=== PATIENT | female | born 1960 | race Caucasian/White ===

== ENCOUNTER 2019-12-14 14:57 | Emergency (ER) | payer OTHER, SELFPAY ==
--- NOTE | ~2019-12-14 | XR_ITS ---
EXAMINATION: XR chest 2V 12/14/2019 17:17 INDICATION: Dizziness. PROCEDURE: 2 view chest COMPARISON: Comparison to multiple prior studies sequentially, with oldest reviewed study dated 08/17. FINDINGS: The lungs are clear. The cardiomediastinal silhouette is within normal limits. There are no pleural effusions. There is no pneumothorax suspected. IMPRESSION: 1: NO ACUTE CARDIOPULMONARY DISEASE. Reviewed, dictated and finalized at location A.
[2019-12-14 15:53] VITALS: BP 152/93; PULSE 68; RESP 18; TEMP 36.5; O2SAT 99
--- NOTE | 2019-12-14 15:57 | ECG_ITS ---
Measurements Intervals [place] Rate: 59 P: -2 CO: 222 QRS: 8 QRSD: 85 T: 25 QT: 402 QTc: 400 Interpretive Statements SINUS BRADYCARDIA WITH FIRST DEGREE AV BLOCK INCOMPLETE RIGHT BUNDLE BRANCH BLOCK LOW QRS VOLTAGE IN PRECORDIAL LEADS BASELINE WANDER- V2-V6 ABNORMAL ECG Electronically Signed On 12-14-2019 18:27:08 CDT by Wilson Mantilla D.O.
[2019-12-14 16:12] LABS: Basophils Absolute Auto 0.1 K/mm3 (0.0-0.1); Basophils Percent Auto 0.8 % (0.2-1.2); Eosinophils Absolute Auto 0.4 K/mm3 (0-0.3); Eosinophils Percent Auto 3.8 % (0-4.4); Hematocrit 45.2 % (37.0-47.0); Hemoglobin 15.3 g/dL (12.0-15.0); Immature Granulocyte Absolute 0.02 K/mm3 (0.00-0.031); Immature Granulocyte Percent A 0.2 % (0-0.5); Lymphocytes Absolute Auto 2.58 K/mm3 (0.9-3.2); Lymphocytes Percent Auto 27.7 % (18.3-44.2); Mean Corpuscular HGB Conc 33.8 g/dl (32-36); Mean Corpuscular Hemoglobin 29.4 pg (26-34); Mean Corpuscular Volume 86.8 fl (80-100); Mean Platelet Volume 8.8 fl (7.4-10.4); Monocytes Absolute Auto 0.5 K/mm3 (0.1-0.6); Monocytes Percent Auto 4.9 % (2.6-8.5); Neutrophils Absolute Auto 5.8 K/mm3 (1.3-6.7); Neutrophils Percent Auto 62.6 % (45.5-73.1); Platelet Count Result 345 k/mm3 (150-375); Red Blood Count 5.21 M/mm3 (4.2-5.4); Red Cell Distribution Width 12.5 % (11.5-14.5); White Blood Count 9.3 K/mm3 (4.5-10.0)
[2019-12-14 16:21] LABS: Add Urine Microscopic? YES; Appearance Urine Clear (Clear); Bilirubin Urine Negative (Negative); Blood Urine Negative (Negative); Color Urine Yellow (Yellow); Glucose Urine UA Negative (Negative); Ketones Urine Negative (Negative); Leukocyte Esterase Ur 1+ LEU/UL (Negative); Nitrate Urine Negative (Negative); Protein Urine Negative (Negative); RBC Urine 0-2 /hpf (0-2); Squamous Epithelial Cell Urine Occasional /hpf (Few); Urobilinogen Urine Negative mg/dL (<2.0); WBC Urine 0-3 /hpf
[2019-12-14 16:25] LABS: Alanine Aminotransferase 32 U/L (4-35); Albumin Level 4.8 g/dL (3.5-5.1); Alkaline Phosphatase 115 U/L (38-126); Aspartate Amino Transferase 28 U/L (14-36); Bilirubin,Total 0.3 mg/dL (0.2-1.3); Blood Urea Nitrogen 17 mg/dL (7-17); Calcium 9.2 mg/dL (8.4-10.2); Carbon Dioxide 24 mmol/L (22-30); Chloride 104 mmol/L (98-107); Estimated CRCL calculation 82 ml/min; Estimated Glomerular Filt Rate > 60; Glucose 112 mg/dL (65-105); Potassium 3.8 mmol/L (3.4-5.0); Sodium 141 mmol/L (137-145)
[2019-12-14 17:32] VITALS: BP 157/99; PULSE 67; RESP 18; O2SAT 97
--- NOTE | 2019-12-14 17:59 | ED.GENADULT ---
HPI - General Adult General Chief complaint: Recheck/Abnormal Lab/Rx Stated complaint: High Blood Pressure Time Seen by Provider: 12/14/19 17:07 Source: patient and family Mode of arrival: ambulatory Limitations: no limitations History of Present Illness HPI narrative: Patient is a 59-year-old female who presents to emergency department for evaluation of having not felt well Monday had a brief syncopal episode at work has been off work since notes that she has had some mild aching pain to the right ear that radiates into the neck. Patient denies any injuries related to the syncope patient noticed syncope in the past but nothing in the recent past. . Patient has not been seen for this complaint. Patient went to urgent care and was referred to the emergency department for further evaluation Related Data Home Medications Medication Instructions Recorded Confirmed simvastatin 10 mg tablet 10 mg PO DAILY 06/07/19 zolpidem 12.5 mg tablet,extended 12.5 mg PO ONCE 06/07/19 release,multiphase Allergies Allergy/AdvReac Type Severity Reaction Status Date / Time Iodinated Contrast Media Allergy Unknown Hives Verified 12/14/19 17:38 iodine Allergy Unknown Unknown Verified 12/14/19 17:38 Contrast Media Allergy Intermediate HIVES, Uncoded 12/14/19 17:38 ITCHING Review of Systems Review of Systems: All systems reviewed & are unremarkable except as noted in HPI and below PMFSH Past Medical History Medical History Hepatic steatosis High cholesterol History of blood transfusion History of kidney stones Hx of mitral valve prolapse Hypothyroid Surgical History Surgical History Hx of hysterectomy Hx of rotator cuff surgery Hx of total knee replacement Family History Family History Mother Family history of mental disorder Hypertension Family history of coronary artery disease Father Family history of coronary artery disease Other Family history of cardiovascular disease Family history of kidney disease Social History Social History Smoking packs per day: 1 Smoking cigarettes per day: 20.0 Smoking status: Former smoker Tobacco type: cigarettes Smoking end date: 06/05/98 Alcohol intake: current Substance use: never Exam Narrative: Exam Narrative: GENERAL: Well-appearing, well-nourished, and in no acute distress. HEAD: Normocephalic, atraumatic. EYES: PERRLA and EOMI. ENT: Nares clear, no rhinorrhea or epistaxis. Mucous membranes moist. Oropharynx without tonsillar hypertrophy exudate or other lesions. NECK: Supple. No adenopathy or masses. CHEST: Clear to auscultation. No respiratory distress. No wheezes rales or rhonchi HEART: Regular rate and rhythm. No murmur heard. Normal peripheral pulses. ABDOMEN: Soft, nontender, nondistended EXTREMITIES: Normal range of motion. No edema. SKIN: Warm, dry, no rash. NEURO: No focal deficits. Alert and oriented x3. Cranial nerves II through XII grossly intact. Normal speech and gait PSYCH: Normal mood and affect. Course Course Emergency Course: Patient in the room in no distress aware of case findings treatment plan and diagnosis agreeing to follow-up with primary care no high risk changes in the blood work or imaging will also be referred to ENT for her ear pain Vital Signs Vital signs: Vital Signs Temperature 97.7 F 12/14/19 15:53 Pulse Rate 68 12/14/19 15:53 Respiratory Rate 18 12/14/19 15:53 Blood Pressure 152/93 H 12/14/19 15:53 Pulse Oximetry 99 12/14/19 15:53 Temperature 97.7 F 12/14/19 15:53 Pulse Rate 67 12/14/19 17:32 Respiratory Rate 18 12/14/19 17:32 Blood Pressure 157/99 H 12/14/19 17:32 Pulse Oximetry 97 12/14/19 17:32 Medical Decision Making CHRISTOFER Liu
== END 2019-12-14 18:27 | disposition home or self-care (01) ==
PROVIDERS: Emergency Provider Emergency Medicine; PCP Emergency Medicine
DX: R55 Syncope and collapse (principal); H92.01 Otalgia, right ear; E78.00 Pure hypercholesterolemia, unspecified; Z87.442 Personal history of urinary calculi; E03.9 Hypothyroidism, unspecified; I34.1 Nonrheumatic mitral (valve) prolapse; Z96.659 Presence of unspecified artificial knee joint; Z87.891 Personal history of nicotine dependence
CPT/HCPCS: 36415; 71046; 80053; 81001; 85025; 93005; 99283

== ENCOUNTER 2020-02-15 09:19 | Outpatient (CLI) | payer OTHER, SELFPAY ==
--- NOTE | ~2020-02-15 | CT_ITS ---
EXAMINATION: CT chest wo con DATE: 02/15/2020 09:42 INDICATION: Follow-up lung nodule TECHNIQUE: Computed tomography (CT) of the chest was performed without intravenous contrast. The dose -length product was 440.78 mGy-cm. Automated exposure control and iterative reconstruction technique were employed. COMPARISON: CT dated 04/15/2019 FINDINGS: No significant pleural or pericardial effusion. There are calcified mediastinal lymph nodes , consistent with chronic granulomatous disease. There is a stable 10 x 7 x 5 mm left lower lobe nodu le, unchanged. No new pulmonary nodules or masses. No focal airspace consolidation. No pathologically enlarged lymph nodes. Mild thoracic spondylosis. IMPRESSION: 1. Stable 10 x 7 x 5 mm left lower lobe nodule. Follow-up low dose CT chest in 12 months recommended. Reviewed, dictated and finalized at location A.
== END 2020-02-15 09:20 | disposition home or self-care (01) ==
PROVIDERS: PCP Emergency Medicine; Visit Provider Emergency Medicine
DX: R91.1 Solitary pulmonary nodule (principal)
CPT/HCPCS: 71250

== ENCOUNTER 2020-03-02 07:36 | Outpatient (CLI) | payer OTHER, SELFPAY ==
--- NOTE | ~2020-03-02 | MM_ITS ---
EXAMINATION: MM screening [facility] BI w monty HISTORY: Screening mammogram TECHNIQUE: Craniocaudal and mediolateral oblique 3-D tomosynthesis images were obtained and synthetic 2-D images were generated. CAD analysis was submitted and interpreted. COMPARISON: 02/21/2019, 03/14/2018, 02/19/2018, 02/07/2017 BREAST PARENCHYMAL COMPOSITION: There are scattered areas of fibroglandular density. FINDINGS: There is no evidence of suspicious mass, calcification, or architectural distortion to sugg est malignancy in either breast. There has been no suspicious interval change. IMPRESSION: 1. No mammographic evidence of malignancy. 2. Recommend routine screening mammography in one year. BI-RADS Category 1: Negative Reviewed, dictated and finalized at location A.
== END 2020-03-02 07:37 | disposition home or self-care (01) ==
LOC: ANHIMG 07:38
PROVIDERS: PCP Emergency Medicine; Visit Provider Emergency Medicine
DX: Z12.31 Encounter for screening mammogram for malignant neoplasm of breast (principal)
CPT/HCPCS: 77063; 77067

== ENCOUNTER 2020-03-25 06:48 | Outpatient (NON) | payer OTHER, SELFPAY ==
[2020-03-25 19:05] LABS: SARS-CoV-2 RNA PCR Negative
== END 2020-03-25 06:49 ==
LOC: ANHCOVIDDT 06:49
PROVIDERS: PCP Emergency Medicine; Visit Provider Emergency Medicine
DX: Z20.828 Contact with and (suspected) exposure to other viral communicable diseases (principal); B34.9 Viral infection, unspecified
CPT/HCPCS: 87635; C9803; U0003

== ENCOUNTER 2020-09-29 16:21 | Outpatient (CLI) | payer OTHER, SELFPAY ==
--- NOTE | ~2020-09-29 | NM_ITS ---
EXAMINATION: NM pulmonary perfusion EXAM DATE: 09/29/2020 17:20 INDICATION: Chest pain. TECHNIQUE: A perfusion lung scan was performed. The patient was injected with 4.5 mCi technetium 99m MAA and imaged. Modified PIOPED 2 criteria used for interpretation of perfusion without ventilation study (recent chest x-ray instead for comparison). There is no prior study for comparison. FINDINGS: There is homogeneous perfusion throughout the lungs, no evidence of defect. IMPRESSION: Normal perfusion scan. Reviewed, dictated and finalized at location A. IMPRESSION: Normal perfusion scan.
--- NOTE | ~2020-09-29 | US_ITS ---
EXAMINATION: US venous doppler LE RT EXAM DATE: 09/29/2020 16:54 INDICATION: Right leg pain. TECHNIQUE: Multiple grayscale, color flow and Doppler images of the right lower extremity deep venous system were obtained and reviewed. There is no prior study for comparison. FINDINGS: The right common femoral, femoral and profunda veins demonstrate normal color flow, respira tory variation, augmentation and compressibility. Compressibility, color flow confirmed within the r ight popliteal, posterior tibial, peroneal, and greater saphenous veins. IMPRESSION: 1. No right lower extremity deep venous thrombosis. Reviewed, dictated and finalized at location A.
--- NOTE | ~2020-09-29 | XR_ITS ---
EXAMINATION: XR chest 2V EXAM DATE: 09/29/2020 17:38 INDICATION: Chest pain. TECHNIQUE: Frontal and lateral projections of the chest obtained and reviewed. Comparison is made to prior examination from 12/14/2019. FINDINGS: The lungs are clear. There are no pleural effusions. The cardiomediastinal silhouette is within normal limits. There is no pneumothorax suspected. The bones and soft tissues are unremarkab le. IMPRESSION: Unremarkable chest x-ray exam. Reviewed, dictated and finalized at location A.
== END 2020-09-29 16:22 | disposition home or self-care (01) ==
PROVIDERS: PCP Emergency Medicine; Visit Provider Emergency Medicine
DX: M79.661 Pain in right lower leg (principal); R07.9 Chest pain, unspecified
CPT/HCPCS: 71046; 78580; 93971; A9540

== ENCOUNTER 2021-01-14 10:23 | Outpatient (CLI) | payer OTHER, SELFPAY ==
--- NOTE | 2021-01-14 | ECG_ITS ---
Measurements Intervals [place] Rate: 54 P: 2 [place]: 219 QRS: 16 QRSD: 101 T: 49 QT: 432 QTc: 412 Interpretive Statements SINUS BRADYCARDIA WITH FIRST DEGREE AV BLOCK INCOMPLETE RIGHT BUNDLE BRANCH BLOCK LOW QRS VOLTAGE IN PRECORDIAL LEADS ABNORMAL ECG Electronically Signed On 01-14-2021 11:08:42 CDT by Wilson Mantilla D.O.
--- NOTE | ~2021-01-14 | XR_ITS ---
EXAMINATION: XR chest 2V DATE: 01/14/2021 10:47 INDICATION: Tobacco use. Preop. TECHNIQUE: Frontal and lateral views of the chest were obtained. COMPARISON: Chest 2 views 09/29/2020, chest CT 02/15/2020 FINDINGS: The chest demonstrates clear lungs without pneumonia, pleural effusion, or pneumothorax. Th e heart size is normal. IMPRESSION: 1. No acute cardiopulmonary disease. Reviewed, dictated and finalized at location A.
== END 2021-01-14 10:24 | disposition home or self-care (01) ==
LOC: ANHIMG 10:29
PROVIDERS: PCP Emergency Medicine; Visit Provider Emergency Medicine
DX: Z01.818 Encounter for other preprocedural examination (principal); I45.10 Unspecified right bundle-branch block
CPT/HCPCS: 71046; 93005

== ENCOUNTER 2021-01-19 10:41 | Outpatient (CLI) | payer OTHER, SELFPAY ==
--- NOTE | 2021-01-19 | EST_ITS ---
Patient Info Name: Darby Agarwal Age: 60 years : 1960 Gender: Female Ht: 63 in Wt: 210 lbs BSA: 2.10 m2 HR: 58 bpm BP: 120 / 70 mmHg Heart Rhythm: Sinus Rhythm Exam Date: 01/19/2021 11:38 AM Exam Location: [facility] Stress Patient Status: Outpatient Admit Date: 01/19/2021 Staff Ordering Physician: Harvey Gomez MD Attending Provider: Harvey Gomez MD Exercise Technologist: Sandra Montgomery CT Exercise Physician: Wilson Mantilla DO Exam Type: CA stress narendra w NM Study Info A regadenoson stress test was performed. Summary 1. 1. Negative lexiscan stress test for ischemic ST changes by ECG criteria. 2. 2. Stable hemodynamics throughout the test. 3. 3. Nuclear scan to follow and will be reported separately. Please correlate with it. 4. 4. Patient informed of the above results. Protocol: Lexiscan Stress ECG Details Stage: REST Duration (min): 0 min : 54 sec HR (bpm): 58 SBP (mmHg): 120 DBP (mmHg): 70 Stage: REST Duration (min): 4 min : 38 sec HR (bpm): --- SBP (mmHg): 120 DBP (mmHg): 70 Stage: STAGE 1 Duration (min): 1 min : 0 sec HR (bpm): 74 SBP (mmHg): 140 DBP (mmHg): 65 Stage: RECOVERY Duration (min): 1 min : 0 sec HR (bpm): 70 SBP (mmHg): 140 DBP (mmHg): 65 Stage: RECOVERY Duration (min): 1 min : 45 sec HR (bpm): --- SBP (mmHg): 140 DBP (mmHg): 65 Peak HR: 78 bpm Rest Sys BP: 120 mmHg Peak Sys BP: 140 mmHg Max Pred HR: 162 bpm % Max Pred HR: 48 % Target HR: 138 bpm Max RPP: 10,920 bpm*mmHg Termination Reason: Completed protocol Cardiac Symptoms: Shortness of breath, Nausea Total Time: 1 min : 0 sec Rest Malhotra BP: 70 mmHg Peak Malhotra BP: 65 mmHg Total Dose: 0.4 mg Resting ECG Sinus rhythm. Stress ECG No ST changes. Arrhythmias None. Report Signatures
--- NOTE | ~2021-01-19 | NM_ITS ---
EXAMINATION: NM narendra stress w perfusion DATE: 01/19/2021 12:41 CDT INDICATION: Chest pain TECHNIQUE: Rest images were obtained following intravenous administration of 9 mCi Tc99m tetrofosmin (Myoview). The patient was infused intravenously with Lexiscan (regadenoson). Then, 28.8 mCi Tc99m te trofosmin (Myoview) was administered intravenously, and stress images were obtained. Data was reconst ructed into short axis and horizontal and vertical long axis SPECT images. Gated SPECT images were al so obtained. COMPARISON: None. FINDINGS: There is no definite reversible or fixed perfusion abnormality to suggest ischemia or infar ction. There is no segmental wall motion abnormality. Left ventricular ejection fraction measures 8 9%. IMPRESSION: 1. No definite ischemia or infarct. 2. Normal left ventricular ejection fraction measuring 89%. Reviewed, dictated and finalized at location A.
== END 2021-01-19 10:42 | disposition home or self-care (01) ==
LOC: ANHCARD 10:43
PROVIDERS: PCP Emergency Medicine; Visit Provider Emergency Medicine
DX: Z01.818 Encounter for other preprocedural examination (principal)
CPT/HCPCS: 78452; 93017; A9502; J2785

== ENCOUNTER 2021-02-18 11:20 | Observation (INO) | payer OTHER, SELFPAY ==
[2021-02-18] VITALS (8 sets, daily range): BP systolic 127–171; BP diastolic 66–95; PULSE 59–69; RESP 16–20; TEMP 36.6; O2SAT 98–100; BMI 37.7
--- NOTE | ~2021-02-18 | CT_ITS ---
EXAMINATION: CT abdomen pelvis wo con DATE: 02/18/2021 13:25 INDICATION: Abdominal pain TECHNIQUE: Computed tomography (CT) of the abdomen and pelvis was performed without intravenous contr ast. The dose-length product (DLP) was 1103.59 mGy-cm. Automated exposure control and iterative recon struction technique were employed. COMPARISON: 10/03/2018 FINDINGS: Minimal dependent atelectasis is present in the lung bases. The heart size is normal. A sta ble 6 mm nodule in the left lower lobe is consistent with old granulomatous disease. The liver, splee n, gallbladder, and adrenal glands are normal. There is fatty infiltration in the body of the pancrea s. The kidneys are unremarkable. No stones are identified in the kidneys, ureters, or bladder. There is no hydronephrosis or hydroureter. No pathologically enlarged abdominal or pelvic lymph nodes are i dentified. There is no free intraperitoneal gas or evidence of bowel obstruction. A circumaortic left renal vein is noted. The appendix is normal. There is mild lumbar spondylosis. There is a small fat- containing umbilical hernia. IMPRESSION: 1. No CT correlate for the patient's symptoms. Reviewed, dictated and finalized at location A.
--- NOTE | ~2021-02-18 | US_ITS ---
EXAMINATION: US abdomen limited DATE: 02/19/2021 10:34 INDICATION: Abdominal pain TECHNIQUE: Multiple grayscale and Doppler ultrasound images of the abdomen were obtained. COMPARISON: 08/06/[address] from yesterday FINDINGS: The head, body, and tail of the pancreas are normal. The liver is normal with normal echoge nicity and echotexture. No surface nodularity. Normal hepatopetal flow in the main portal vein. The g allbladder is normal with no abnormal wall thickening, pericholecystic fluid or stones. The normal co mmon bile duct measures 4 mm. There was no sonographic Almanzar sign. IMPRESSION: 1. Normal sonographic study of the gallbladder. Reviewed, dictated and finalized at location A.
--- NOTE | ~2021-02-18 | XR_ITS ---
EXAMINATION: XR chest 1V portable INDICATION: Chest pain TECHNIQUE: Portable AP chest at 1144 hours COMPARISON: 01/14/2021 FINDINGS: The lungs are free of acute opacities. There is no pleural effusion or pneumothorax. The ca rdiomediastinal silhouette is normal. IMPRESSION: 1. No acute cardiopulmonary abnormality. Reviewed, dictated and finalized at location A.
--- NOTE | 2021-02-18 11:27 | ED.CHESTPAIN ---
HPI - Chest Pain General Chief Complaint: Chest Pain Stated Complaint: CP Source: RN notes reviewed History of Present Illness HPI narrative: Patient presents emergency department from work via EMS for chest pain. Patient states for the past 2 days she has been having intermittent chest pain in the midsternal chest pain is described as sharp and stabbing and goes through into her back and sometimes up into her neck. 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 and begin to feel lightheaded and had a brief syncopal episode she was caught before she fell to the ground patient states she did recently have a stress test performed at [facility] as preop for neck surgery she has upcoming she denies any fevers or chills states she has been having some intermittent upper abdominal pain as well denies any nausea denies any previous cardiac Related Data Home Medications Medication Instructions Recorded Confirmed simvastatin 10 mg tablet 10 mg PO DAILY 06/07/19 zolpidem 12.5 mg tablet,extended 12.5 mg PO ONCE 06/07/19 release,multiphase Allergies Allergy/AdvReac Type Severity Reaction Status Date / Time Iodinated Contrast Media Allergy Unknown Hives Verified 02/18/21 12:14 iodine Allergy Unknown Unknown Verified 02/18/21 12:14 Contrast Media Allergy Intermediate HIVES, Uncoded 12/14/19 17:38 ITCHING Review of Systems Review of Systems: Gen.: Denies fevers or chills Eyes: Denies eye pain or visual change ENT: Denies congestion Respiratory: Reports shortness of breath CV: See HPI GI: Reports upper abdominal pain. Denies nausea, emesis or diarrhea Musculoskeletal: Denies back pain or muscle pain Neuro: Denies numbness, tingling, weakness or focal weakness Skin: Denies rash Except as documented, all other systems reviewed and negative [facility] Past Medical History Medical History (Updated 02/18/21 @ 16:31 by Peña Callahan DO) Hepatic steatosis High cholesterol History of blood transfusion History of kidney stones Hx of mitral valve prolapse Hypothyroid Surgical History Surgical History Hx of hysterectomy Hx of rotator cuff surgery Hx of total knee replacement Family History Family History Mother Family history of mental disorder Hypertension Family history of coronary artery disease Father Family history of coronary artery disease Other Family history of cardiovascular disease Family history of kidney disease Social History Social History Smoking packs per day: 1 Smoking cigarettes per day: 20.0 Smoking status: Former smoker Tobacco type: cigarettes Smoking end date: 06/05/98 Alcohol intake: current Substance use: never Exam Narrative: APPEARANCE: No acute distress, nontoxic, resting in bed EYES: EOMI HEENT: Normocephalic, atraumatic, OMM RESPIRATORY: No respiratory distress Clear to auscultation bilaterally with no rhonchi wheezing or rales. CARDIOVASCULAR: Regular rate and rhythm without murmurs rubs or gallops. ABDOMINAL: Soft, nondistended tender palpation epigastric, right upper quadrant left upper quadrant no tenderness right lower quadrant left lower quadrant no rebound or guarding MUSCULOSKELETAl: Moves all extremities. No clubbing, cyanosis or edema. NEURO: Awake and alert. Following commands, speech normal, no focal deficits SKIN:: Warm, dry. No rashes lesions or abrasions PSYCHIATRIC: Normal affect/mood, Course Course Emergency Course: Reviewed old records. The patient did recently have a nuclear stress test performed by Dr. Mantilla that showed no acute abnormalities Vital Signs Vital signs: Vital Signs Temperature 98 F 02/18/21 11:21 Pulse Rate 66 02/18/21 11:21 Respiratory Rate 16 02/18/21 11:21 Blood Pres
--- NOTE | 2021-02-18 11:30 | ECG_ITS ---
Measurements Intervals [place] Rate: 66 P: 4 [place]: 223 QRS: 8 QRSD: 92 T: 24 QT: 407 QTc: 428 Interpretive Statements SINUS RHYTHM WITH FIRST DEGREE AV BLOCK LOW QRS VOLTAGE IN PRECORDIAL LEADS BASELINE ARTIFACT- I, II, III, AVR, AVL, AVF ABNORMAL ECG Electronically Signed On 02-18-2021 11:41:16 CDT by Wilson Mantilla D.O.
[2021-02-18 12:35] LABS: Basophils Absolute Auto 0.1 K/mm3 (0.0-0.1); Basophils Percent Auto 0.8 % (0.2-1.2); Eosinophils Absolute Auto 0.2 K/mm3 (0-0.3); Eosinophils Percent Auto 2.9 % (0-4.4); Hematocrit 38.8 % (37.0-47.0); Hemoglobin 13.2 g/dL (12.0-15.0); Immature Granulocyte Absolute 0.04 K/mm3 (0.00-0.031); Immature Granulocyte Percent A 0.5 % (0-0.5); Lymphocytes Percent Auto 30.5 % (18.3-44.2); Mean Corpuscular Hemoglobin 29.7 pg (26-34); Mean Corpuscular Volume 87.2 fl (80-100); Mean Platelet Volume 8.8 fl (7.4-10.4); Monocytes Absolute Auto 0.4 K/mm3 (0.1-0.6); Monocytes Percent Auto 5.5 % (2.6-8.5); Neutrophils Absolute Auto 4.7 K/mm3 (1.3-6.7); Neutrophils Percent Auto 59.8 % (45.5-73.1); Platelet Count Result 295 k/mm3 (150-375); Red Blood Count 4.45 M/mm3 (4.2-5.4); Red Cell Distribution Width 12.8 % (11.5-14.5); White Blood Count 7.9 K/mm3 (4.5-10.0)
[2021-02-18 12:47] LABS: Alanine Aminotransferase 31 U/L (4-35); Albumin Level 4.4 g/dL (3.5-5.1); Alkaline Phosphatase 97 U/L (38-126); Anion Gap 11 mmol/L (8-16); Aspartate Amino Transferase 29 U/L (14-36); Bilirubin,Total 0.4 mg/dL (0.2-1.3); Blood Urea Nitrogen 16 mg/dL (7-17); Calcium 9.2 mg/dL (8.4-10.2); Carbon Dioxide 26 mmol/L (22-30); Chloride 105 mmol/L (98-107); Estimated CRCL calculation 83 ml/min; Estimated Glomerular Filt Rate > 60; Glucose 112 mg/dL (65-110); Lipase 74 U/L (23-300); Potassium 4.1 mmol/L (3.4-5.0); Sodium 142 mmol/L (137-145)
[2021-02-18 12:48] LABS: INR 0.9; Prothrombin Time 11.8 Seconds (11.1-14.7)
[2021-02-18 12:49] LABS: Partial Thromboplastin Time 28.4 SECONDS (22.3-36.8)
[2021-02-18 12:54] LABS: D Dimer < 0.22 ug/mL (<0.48)
[2021-02-18] MEDS: SODIUM CHLORIDE 0.9% IV 1,000 ML 999 ML IV CONT (12:55)
[2021-02-18 12:59] LABS: Troponin I < 0.012 ng/mL (0.000-0.034)
[2021-02-18 13:30] LABS: Add Urine Microscopic? YES; Appearance Urine Clear (Clear); Bilirubin Urine Negative (Negative); Blood Urine 1+ (Negative); Color Urine Yellow (Yellow); Glucose Urine UA Negative (Negative); Ketones Urine Negative (Negative); Leukocyte Esterase Ur 2+ LEU/UL (Negative); Nitrate Urine Negative (Negative); Protein Urine Negative (Negative); RBC Urine 0-2 /hpf (0-2); Specific Grav Ur 1.013 (1.001-1.035); Squamous Epithelial Cell Urine Few /hpf (Few); Urobilinogen Urine Negative mg/dL (<2.0)
--- NOTE | 2021-02-18 14:20 | PM.CNCAR ---
Assessment and Plan Assessment and plan (1) Chest pain: Code(s): R07.9 - Chest pain, unspecified Status: Acute Assessment and Plan: Atypical. Probably musculoskeletal or cervical radiculopathy. EKG and troponin are OK thus far. Await 2 more sets of troponin. Obtain echo. (2) High cholesterol: Code(s): E78.00 - Pure hypercholesterolemia, unspecified Status: Acute Assessment and Plan: On Simvastatin. (3) Lightheadedness: Code(s): R42 - Dizziness and giddiness Status: Acute Assessment and Plan: Probably due to vasovagal episode related to chest pains. History of Present Illness History of Present Illness Consult date/time: 02/18/21 14:20 Reason for consult: CP. 60 yr old woman presents to ER with chest pain. She has a history of cervical injury requiring surgery C5-C6 from 3 years ago that was work-related with tingling down to her right hand/fingers, and dyslipidemia, ALYSSA from 5 years ago but does not use CPAP. Reports for last 3 days she has been having constant sharp chest pains radiating to her back and jaw. It could get up to 8/10 in intensity. Today when she felt the pain increasing she felt lightheaded and nearly passed out. Normally she can walk a few blocks without any problems. Denies orthopnea, PND, edema, palpitations. EKG shows sinus rhythm, low voltage in precordial leads. CXR is normal. 01/19/21 Lexiscan myoview: Negative for ischemia. Reason For Visit: CP Review of Systems Review of Systems: All systems reviewed & are unremarkable except as noted in HPI and below Constitutional: Constitutional: Reports as per HPI, Denies chills and Denies fever(s) Cardiovascular: Cardiovascular: Reports as per HPI, Reports chest pain, Denies leg edema, Reports lightheadedness and Reports radiating jaw, neck or arm pain Respiratory: Respiratory: Reports as per HPI and Denies dyspnea Gastrointestinal: Gastrointestinal: Reports as per HPI and Denies abdominal pain Genitourinary: Genitourinary: Reports as per HPI and Denies dysuria Musculoskeletal: Musculoskeletal: Reports as per HPI and Reports arthralgias Neurologic: Reports as per HPI and Reports dizziness PMFSH Past Medical History Medical History (Updated 02/18/21 @ 14:26 by Wilson Mantilla DO) Hepatic steatosis High cholesterol History of blood transfusion History of kidney stones Hx of mitral valve prolapse Hypothyroid Surgical History Surgical History Hx of hysterectomy Hx of rotator cuff surgery Hx of total knee replacement Family History Family History Mother Family history of mental disorder Hypertension Family history of coronary artery disease Father Family history of coronary artery disease Other Family history of cardiovascular disease Family history of kidney disease Social History Social History Smoking packs per day: 1 Smoking cigarettes per day: 20.0 Smoking status: Former smoker Tobacco type: cigarettes Smoking end date: 06/05/98 Alcohol intake: current Substance use: never Meds Home Medications and Allergies Home Medications Medication Instructions Recorded Confirmed Type simvastatin 10 mg tablet 10 mg PO DAILY 06/07/19 History zolpidem 12.5 mg tablet,extended 12.5 mg PO ONCE 06/07/19 History release,multiphase Allergies Allergy/AdvReac Type Severity Reaction Status Date / Time Iodinated Contrast Media Allergy Unknown Hives Verified 02/18/21 12:14 iodine Allergy Unknown Unknown Verified 02/18/21 12:14 Contrast Media Allergy Intermediate HIVES, Uncoded 12/14/19 17:38 ITCHING Vital Signs Vital Signs - 24 hr 02/18/21 11:21 02/18/21 11:42 02/18/21 13:27 Temperature 98 F Pulse Rate 66 68 67 Respiratory Rate 16 16 Blood Pressure 157/86 H 155/7
[2021-02-18] MEDS: MORPHINE SULFATE (*CRX) 2 MG/ML INJ IV PUSH (15:05)
[2021-02-18 16:17] LABS: Troponin I < 0.012 ng/mL (0.000-0.034)
--- NOTE | 2021-02-18 16:45 | PM.IMHP ---
H&P: HPI History of Present Illness Date/Time: 02/18/21 16:45 Chief Complaint: Chest pain. Narrative: This is a very pleasant 60-year-old female with high cholesterol who presented to the emergency department earlier today via EMS for evaluation of chest pain. While at work this morning she developed sudden, severe pressure-like discomfort in the midsternal chest region radiating through to the back and up into the jaw and neck. 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 I was told that the patient was also diaphoretic on EMS arrival. With further questioning the patient mentions having similar episodes over the last several days albeit with less severity. She sees no pattern as to when this occurred and specifically denies that is associated with exertion or meals. She does have intermittent issues with GERD for which she will take Tums and she also mentions having problems with her gallbladder ?and I probably need to have it taken out at some point.? She also mentions occasional bloating. GI cocktail given emergency department was not of significant benefit. She denies that her pain today is similar to those she will experience with her gallbladder attacks. It also does not feel similar to her GERD symptoms. She has no known history of heart disease and in fact had a negative Lexiscan stress test with no definite infarct or ischemia on MPI just last month on January 19 in anticipation of an upcoming surgery. At the time my evaluation she has some discomfort although it seems to be centered more so in the epigastrium where she is quite tender to palpation. She has no history of gastritis, ulcers, or pancreatitis. She denies nausea, vomiting, and diarrhea. No pleuritic pain, palpitations, orthopnea, PND, or lower extremity edema. Review of Systems Review of Systems: Twelve systems were reviewed with pertinent positives and negatives as per HPI. No fever, chills, or sweats. No recent cold or flu symptoms. She has had ongoing issues with radiculopathy in both arms for a couple of years and more recently has had pain and weakness in her right shoulder. She is set to have C5 through C7 disc replacements in the coming months. She takes Tylenol for pain and denies NSAID use. She drinks perhaps 1 cup of coffee a day. No significant soda or alcohol use. No melena or hematochezia. She has no history of high blood pressure but her numbers have been elevated since admission and she does admit to feeling quite anxious at this time. No headache. No vertigo. She denies focal weakness. Except as documented, all other systems were reviewed and are negative. [facility] Past Medical History Medical History Hepatic steatosis High cholesterol History of blood transfusion History of kidney stones Hypothyroid Mitral valve prolapse Surgical History Surgical History History of arthroscopy of left knee (12/2015) History of colonoscopy with polypectomy History of hysterectomy (1987) History of repair of left rotator cuff (08/2012) History of right knee joint replacement (05/2016) Family History Family History Mother Family history of mental disorder Hypertension Family history of coronary artery disease Father Family history of coronary artery disease Other Family history of cardiovascular disease Family history of kidney disease Social History Social History (Updated 02/18/21 @ 21:53 by Lenka Poe PA-C) Social History: Surrogate decision maker: Nazario Agarwal, spouse. Code status: Full code. Smoking packs per day: 1 Smoking cigarettes per day: 20.0 Years smoked: 10 Smoking pack-years: 10.00 Smoking stat
--- NOTE | 2021-02-18 18:02 | PC.NURSE ---
1802-ATTEMPTED TO CALL REPORT. RECEIVING RN IN COVID ROOM. WILL CALL BACK FOR REPORT.
[2021-02-18 18:48] LABS: Troponin I < 0.012 ng/mL (0.000-0.034)
--- NOTE | 2021-02-18 20:14 | ADMGEN ---
This patient, Darby Agarwal, was admitted to [facility]. Patient/family oriented to hospital policies and general routines including ID bracelet, bed and alarms, visiting hours, pain management, procedures, bathroom and other care routines, personal items, smoking policy, room service/diet, and visiting hours. Information on how to activate the Rapid Response Team has been discussed. Patient/Family are encouraged to report perceived risks to care and to ask questions if they do not understand what they are told or what they should do.
[2021-02-19] VITALS (15 sets, daily range): BP systolic 142–183; BP diastolic 68–87; PULSE 53–76; RESP 15–18; TEMP 36–36.7; O2SAT 95–100
--- NOTE | 2021-02-19 | ECHO_ITS ---
Patient Info Name: Darby Agarwal Age: 60 years : 1960 Gender: Female Ht: 63 in Wt: 211 lbs BSA: 2.11 m2 HR: 69 bpm BP: 146 / 68 mmHg Technical Quality: Fair Exam Date: 02/19/2021 11:03 AM Exam Location: [facility] Patient Status: Outpatient Admit Date: 02/18/2021 Staff Ordering Physician: Wilson Mantilla DO Insurance Healthcare Consultant: Hay Almanzar RDCS, RT Attending Provider: Alayna Galeas PA-C Referring Physician: Jose Rafael WALTERS; Exam Type: CA echo doppler color flow Study Info Indications R07.9 - Chest pain, unspecified Complete two-dimensional, color flow and Doppler transthoracic echocardiogram is performed. Strain analysis performed. Summary 1. Complete two-dimensional, color flow and Doppler transthoracic echocardiogram is performed. 2. Left ventricular chamber dimension is normal. 3. Left ventricular systolic function is normal, estimated at 65-70%. 4. The left ventricular diastolic function is grade I diastolic dysfunction. 5. E/e' 8 is minimally elevated. 6. Global longitudinal strain is abnormal at -15.3%. Left Ventricle E/e' 8 is minimally elevated. Global longitudinal strain is abnormal at -15.3%. Left ventricular chamber dimension is normal. Left ventricular systolic function is normal, estimated at 65-70%. The left ventricular diastolic function is grade I diastolic dysfunction. Right Ventricle Right ventricular chamber dimension is normal. Right ventricular systolic function is normal. Left Atria Left atrial chamber dimension is normal. Right Atria Right atrial chamber dimension is normal. Aortic Valve The aortic valve is trileaflet. There is no aortic valve stenosis. There is no aortic valve regurgitation. Pulmonic Valve There is no pulmonic regurgitation. Mitral Valve There is no mitral valve stenosis. There is no mitral valve regurgitation. Tricuspid Valve There is no tricuspid valve regurgitation. Pericardium/Pleural There is no pericardial effusion. Inferior Vena Cava Normal inferior vena cava with >50% collapse upon inspiration consistent with normal right atrial pressure, 5 mmHg. Aorta The aortic root size at the sinus of Valsalva is normal. Left Ventricular Outflow Tract Name Value Normal LVOT 2D LVOT Diameter 2.0 cm LVOT Doppler LVOT Peak Gradient 2 mmHg LVOT Mean Gradient 1 mmHg LVOT VTI 19 cm LVOT VTI/AV VTI Ratio 0.7 LVOT Stroke Volume 59 ml LVOT CO 3.4 l/min LVOT CI 1.6 l/min/m2 Mitral Valve Name Value Normal MV Doppler MV Decel Carbon 164 cm/s2 MV PHT 112 ms MV Area (PHT)
[2021-02-19] MEDS: ZOLPIDEM TARTRATE (*CRX) 5 MG TABLET PO (00:23)
[2021-02-19] MEDS: SIMVASTATIN 10 MG TABLET PO (00:23)
[2021-02-19 06:37] LABS: Alanine Aminotransferase 33 U/L (4-35); Albumin Level 4.2 g/dL (3.5-5.1); Alkaline Phosphatase 98 U/L (38-126); Anion Gap 7 mmol/L (8-16); Aspartate Amino Transferase 35 U/L (14-36); Bilirubin,Total 0.3 mg/dL (0.2-1.3); Blood Urea Nitrogen 15 mg/dL (7-17); Calcium 9.4 mg/dL (8.4-10.2); Carbon Dioxide 30 mmol/L (22-30); Chloride 106 mmol/L (98-107); Estimated CRCL calculation 83 ml/min; Estimated Glomerular Filt Rate > 60; Glucose 111 mg/dL (65-110); Potassium 4.7 mmol/L (3.4-5.0); Sodium 143 mmol/L (137-145)
--- NOTE | 2021-02-19 07:33 | PM.PNCARD ---
Progress Note: A&P Assessment and Plan (1) Chest pain: Code(s): R07.9 - Chest pain, unspecified Status: Acute Assessment and Plan: Ruled out for ME by series of troponin and EKG. Atypical. Probably cervical radiculopathy, stress/anxiety, or GI related in that order. She sees orthopedic surgeon in [place] and was planning for C5-C6 disc replacement. Had negative nuclear stress test in January 2021. Obtain echo to assess for wall motion abnormalities. If this is unremarkable, no further cardiac workup is needed. (2) High cholesterol: Code(s): E78.00 - Pure hypercholesterolemia, unspecified Status: Acute Assessment and Plan: On Simvastatin. (3) Lightheadedness: Code(s): R42 - Dizziness and giddiness Status: Acute Assessment and Plan: Probably due to vasovagal episode related to chest pains. No recurrence. Telemetry is OK. Subjective Date/time seen: 02/19/21 07:33 Reports chest discomfort as a sharp/aching pressure radiating to left jaw and back at 2/10 this morning which is better. Epigastric tenderness. No sob. Exam Const: General: cooperative, healthy appearing and comfortable Nutritional Appearance: obese Resp: Auscultation: clear to auscultation bilaterally, no crackles, no rales, no rhonchi and no wheezes Cardio: Jugular venous distension: no JVD Rate: regular rate Rhythm: regular rhythm Heart sounds: no murmurs Peripheral pulses: dorsalis pedis present GI: GI Palp: Yes abdominal tenderness (Mild) and Yes Soft to palpation Neuro: General: oriented to person, oriented to place and oriented to time Extrem: Right lower extremity: no edema Left lower extremity: no edema Objective Data Vital Signs Vital Signs: Vital Signs - 24 hr 02/18/21 11:21 02/18/21 11:42 02/18/21 13:27 Temperature 98 F Pulse Rate 66 68 67 Respiratory Rate 16 16 Blood Pressure 157/86 H 155/70 H Pulse Oximetry 100 98 02/18/21 14:30 02/18/21 16:11 02/18/21 18:25 Temperature Pulse Rate 69 64 68 Respiratory Rate 18 18 Blood Pressure 168/67 H 154/66 H 127/95 H Pulse Oximetry 100 100 100 02/18/21 20:00 02/18/21 22:00 02/19/21 00:00 Temperature 97.1 F L Pulse Rate 69 59 L 60 Respiratory Rate 20 18 Blood Pressure 171/82 H 178/70 H Pulse Oximetry 98 98 02/19/21 02:00 02/19/21 04:00 02/19/21 06:00 Temperature 98.0 F Pulse Rate 59 L 74 55 L Respiratory Rate 18 Blood Pressure 146/68 H Pulse Oximetry 95 Intake/Output Intake/Output: Intake & Output 02/16/21 02/17/21 02/18/21 02/19/21 23:59 23:59 23:59 23:59 Intake Total 1050 0 Output Total 650 Balance 1050 -650 Meds/Results Medications: Active Medications Generic Name Dose Route Start Last Admin Trade Name Freq PRN Reason Stop Dose Admin Acetaminophen 500 mg 02/18/21 21:57 Acetaminophen 500 Mg Tablet PO QID PRN Pain Rated 1-3 Ceftriaxone Sodium/Dextrose 1 gm in 50 mls @ 100 mls/hr 02/19/21 14:00 Rocephin 1 Gm/D5w 50 Ml IVPB Q24H ALYSA Simvastatin 10 mg 02/18/21 22:00 02/19/21 00:23 Simvastatin 10 Mg Tablet PO 10 mg HS ALYSA Administration Zolpidem Tartrate 5 mg 02/19/21 21:00 Zolpidem Tartrate (*Crx) 5 Mg Tablet PO 03/21/21 20:59 HS ALYSA Radiology Results: ITS Impressions Chest X-Ray 02/18/21 11:56 IMPRESSION: 1. No acute cardiopulmonary abnormality. Abdomen/Pelvis CT 02/18/21 13:29 IMPRESSION: 1. No CT correlate for the patient's symptoms. Labs Labs: Laboratory Results - last 24 hr 02/18/21 02/18/21 02/18/21 12:24 12:24 12:24 WBC 7.9 RBC 4.45 Hgb 13.2 Hct 38.8 MCV 87.2 MCH 29.7 MCHC 34.0 RDW 12.8 Plt Count 295 MPV 8.8 Immature Gran % (Auto) 0.5 Neut % (Auto) 59.8 Lymph % (Auto) 30.5 [place] % (Auto) 5.5 Eos % (Auto) 2.9 Baso % (Auto) 0.8 Lymph # (Auto) 2.40 [place] # (Auto) 0.4 Eos # (Auto) 0.2 Baso # (Auto
--- NOTE | 2021-02-19 11:50 | PC.NURSE ---
Informed patient of planned EGD and procedure explained.
[2021-02-19] MEDS: ACETAMINOPHEN 500 MG TABLET PO (12:35)
--- NOTE | 2021-02-19 14:19 | PC.NURSE ---
[facility] here to take pt for EGD
[2021-02-19] MEDS: LACTATED RINGERS 1,000 ML 150 ML IV CONT (14:31)
--- NOTE | 2021-02-19 14:39 | WPDANESEPPF ---
Anes - Initial Pre Proc Eval Procedure: Operation Date: 02/19/21 15:30 Proposed Procedures p Esophagogastroduodenoscopy - Ozzie Carney MD Date/Time: 02/19/21 14:39 Surgeon: Alayna Galeas PA-C Pre Op Diagnosis: chest pain Patient Data Age: 60 Gender: F Height: 1.6 m Weight: 94.7 kg Last Vital Signs Temp 36.2 C L 02/19/21 14:27 Pulse 62 02/19/21 14:27 Resp 16 02/19/21 14:27 BP 183/87 H 02/19/21 14:27 Pulse Ox 99 02/19/21 14:27 Allergies Allergy/AdvReac Type Severity Reaction Status Date / Time Iodinated Contrast Media Allergy Unknown Hives Verified 02/19/21 14:24 iodine Allergy Unknown Unknown Verified 02/19/21 14:24 Contrast Media Allergy Intermediate HIVES, Uncoded 02/18/21 20:27 ITCHING Home Medications Medication Instructions Recorded Confirmed Type simvastatin 10 mg tablet 10 mg PO HS 06/07/19 02/18/21 History zolpidem 12.5 mg tablet,extended 12.5 mg PO HS 06/07/19 02/18/21 History release,multiphase acetaminophen [Tylenol Extra 500 mg PO QID PRN 02/18/21 02/18/21 History Strength] Laboratory Tests 02/18/21 02/18/21 02/19/21 15:47 18:12 05:54 Sodium 143 mmol/L mmol/L (137-145) Potassium 4.7 mmol/L mmol/L (3.4-5.0) Chloride 106 mmol/L mmol/L (98-107) Carbon Dioxide 30 mmol/L mmol/L (22-30) Anion Gap 7 mmol/L L mmol/L (8-16) BUN 15 mg/dL mg/dL (7-17) Creatinine 0.70 mg/dL mg/dL (0.7-1.0) Estim Creat Clear Calc 83 ml/min ml/min Estimated GFR > 60 (59 - ) Glucose 111 mg/dL H mg/dL (65-110) Calcium 9.4 mg/dL mg/dL (8.4-10.2) Total Bilirubin 0.3 mg/dL mg/dL (0.2-1.3) AST 35 U/L U/L (14-36) ALT 33 U/L U/L (4-35) Alkaline Phosphatase 98 U/L U/L (38-126) Troponin I < 0.012 ng/mL ng/mL < 0.012 ng/mL ng/mL (0.000-0.034) (0.000-0.034) Total Protein 7.0 g/dL g/dL (6.3-8.2) Albumin 4.2 g/dL g/dL (3.5-5.1) Patient hx anesthesia problems: none Family hx anesthesia problems: none [facility] Past Medical History Medical History Hepatic steatosis High cholesterol History of blood transfusion History of kidney stones Hypothyroid Mitral valve prolapse Surgical History Surgical History History of arthroscopy of left knee (12/2015) History of colonoscopy with polypectomy History of hysterectomy (1987) History of repair of left rotator cuff (08/2012) History of right knee joint replacement (05/2016) Family History Family History (Updated 02/18/21 @ 22:50 by Jamee Panchal RN) Mother Family history of kidney disease Family history of mental disorder Hypertension Father Family history of coronary artery disease Lung cancer Sibling FH: coronary artery bypass surgery Grandparent Cervical cancer Family history of cardiovascular disease Chronic obstructive pulmonary disease Alzheimer's dementia Social History Social History (Updated 02/18/21 @ 21:53 by Lenka Poe PA-C) Social History: Surrogate decision maker: Nazario Agarwal, spouse. Code status: Full code. Smoking packs per day: 1 Smoking cigarettes per day: 20.0 Years smoked: 10 Smoking pack-years: 10.00 Smoking status: Former smoker Tobacco type: cigarettes Second hand tobacco smoke exposure: No Smoking end date: 06/04/99 Alcohol intake: current Substance use: never Substance use type: does not use Additional living arrangements comments: Resides in [place] with her . Additional occupation/education comments: Works for [employer] Spiritual care concerns: No Anes - Eval Final PreProcedure Day of Procedure 02/19/21 14:39 Patient weight: obese Heart: regular rate and rhythm Lungs: clear to au
--- NOTE | 2021-02-19 15:55 | WPDGICN ---
Assessment and Plan Assessment and plan (1) Non-cardiac chest pain: Code(s): R07.89 - Other chest pain Status: Acute Assessment and Plan: will assess with EGD to see if ulcers, esophagitis, etc (2) Lightheadedness: Code(s): R42 - Dizziness and giddiness Status: Acute Assessment and Plan: resolved (3) GERD (gastroesophageal reflux disease): Code(s): K21.9 - Gastro-esophageal reflux disease without esophagitis Status: Acute Assessment and Plan: may need ppi based on findings (4) UTI (urinary tract infection): Code(s): N39.0 - Urinary tract infection, site not specified Status: Acute Assessment and Plan: dirty urine, started on abx GI Consult Note Consult date/time: 02/19/21 15:55 Reason for consult: non-cardiac chest pain HPI: Darby Agarwal is a 60 year old female who came by EMS for evaluation of epigastric and chest pain, new onset and described as severe pressure-like discomfort in the midsternal chest region radiating through to the back and up into the jaw and neck. She also has intermittent reflux symptom for which she will take Tums. She also has a history of cervical injury requiring surgery C5-C6 from 3 years ago that was work-related with tingling down to her right hand/fingers. Lexiscan test was negative and cardiology evaluation unremarkable. Review of Systems Constitutional: Constitutional: Reports no additional constitutional complaints Eyes: Eyes: Denies blurry vision ENT: Reports Normal hearing present Cardiovascular: Cardiovascular: Reports chest pain Respiratory: Respiratory: Denies cough Gastrointestinal: Gastrointestinal: Reports heartburn and Denies vomiting Genitourinary: Genitourinary: Denies hematuria Musculoskeletal: Musculoskeletal: Reports neck pain Integumentary/Breasts: Skin/Breast: Denies dry skin Neurologic: Denies numbness Psychiatric: Psychiatric: Reports no additional psychiatric complaints [facility] Past Medical History Medical History (Updated 02/19/21 @ 16:59 by Ozzie Carney MD) GERD (gastroesophageal reflux disease) Hepatic steatosis High cholesterol History of blood transfusion History of kidney stones Hypothyroid Mitral valve prolapse Non-cardiac chest pain Surgical History Surgical History History of arthroscopy of left knee (12/2015) History of colonoscopy with polypectomy History of hysterectomy (1987) History of repair of left rotator cuff (08/2012) History of right knee joint replacement (05/2016) Family History Family History (Updated 02/18/21 @ 22:50 by Jamee Panchal RN) Mother Family history of kidney disease Family history of mental disorder Hypertension Father Family history of coronary artery disease Lung cancer Sibling FH: coronary artery bypass surgery Grandparent Cervical cancer Family history of cardiovascular disease Chronic obstructive pulmonary disease Alzheimer's dementia Social History Social History (Updated 02/18/21 @ 21:53 by Lenka Poe PA-C) Social History: Surrogate decision maker: Nazario Palafox Stefano, spouse. Code status: Full code. Smoking packs per day: 1 Smoking cigarettes per day: 20.0 Years smoked: 10 Smoking pack-years: 10.00 Smoking status: Former smoker Tobacco type: cigarettes Second hand tobacco smoke exposure: No Smoking end date: 06/04/99 Alcohol intake: current Substance use: never Substance use type: does not use Additional living arrangements comments: Resides in [place] with her . Additional occupation/education comments: Works for [employer] Spiritual care concerns: No Meds Home Medications and Allergies Home Medications Medication Instructions Recorded Confirmed Type simvastatin 10 mg tablet 10 mg PO HS 06/07/19 02/18/21 History zolpidem 12.5 mg tablet,extended 12.5 mg P
--- NOTE | 2021-02-19 17:22 | PM.DS ---
DS: Admitting Diagnosis Discharge Date 02/19/21 Admitting Diagnosis Chest pain DS: Discharge Diagnosis Discharge Diagnosis (1) Chest pain: Code(s): R07.9 - Chest pain, unspecified Status: Acute Assessment and Plan: The patient is a 60-year-old woman with a history of dyslipidemia, who presented to the emergency room with chest pain for 3 days. The patient states her chest pain was chronic in nature and waxed and wane at times. She would intermittently have pain radiating to her neck and in her left arm. She has been under increased stress lately with work, family and the pandemic. She does states she has been feeling more anxious. She also has an upcoming cervical spine surgery that she is getting preop were completed on and hopefully can have surgery in the near future. Initial vitals showed blood pressure elevated at 157/86, heart rate 66, respiratory rate 16, oxygen saturation 100% on room air, afebrile. Initial labs showed normal CBC with differential, normal coag panel, negative D-dimer, CMP normal other than glucose at 112, troponins negative x3, urinalysis shows 2+ leukocyte esterase, WBCs 4-6 and the patient does report having symptoms of a UTI for the last 3 weeks. Chest x-ray was normal. Patient does have a history of gallbladder issues so a CT abdomen pelvis was completed showing no acute issues at this time. Right upper quadrant ultrasound was completed showing normal sonographic study of the gallbladder. The patient was admitted into the hospital with further evaluation and monitoring of her chest pain. Cardiology was consulted, Dr. Mantilla, echo showed normal EF, diastolic grade 1 dysfunction, otherwise normal echocardiogram. Dr. Mantilla had did her Lexiscan stress test on 01/19/2021 which was normal. He fell with her normal workup, troponins, recent stress test being normal that her symptoms are not pertaining to her heart. She was also seen by Dr. Vega, GI specialist to performed an EGD which showed erosive gastritis which could explain part of the patient's symptoms. He recommends Protonix daily and avoid any NSAID use. The patient is feeling well after EGD procedure in eating. She was slightly nauseous which is most likely from the anesthesia. She still felt comfortable with going home. The patient was discharged in stable condition, return to ER warnings given. The patient understands and agrees with the plan. I had a long discussion with the patient about seeing a counselor or therapist due to her increased stressors in her life. We also talked about SSRI medications. She would like to continue thinking about all of this and primary care provider as an outpatient. (2) Elevated blood pressure reading: Code(s): R03.0 - Elevated blood-pressure reading, without diagnosis of hypertension Status: Acute (3) High cholesterol: Code(s): E78.00 - Pure hypercholesterolemia, unspecified Status: Acute DS: Summary Hospital Course Hospital Course: see above Status at Discharge Cognitive/behavioral status at discharge: Stable, improved. Time Spent with Patient Time attestation: Total time spent providing and/or coordinating discharge services: 43 Time spent: Greater than 30 minutes Exam Narrative: General: 60-year-old woman sitting up in bed watching TV. Appears comfortable. In no acute distress. Skin: No jaundice or cyanosis. Good skin turgor. Neck: Full range of motion. Supple. Respiratory: Lungs are clear to auscultation bilaterally. No bony chest wall tenderness. Cardiovascular: The heart has a regular rate and rhythm without murmur. No carotid bruits. Lower extremities: No lower extremity edema. Distal pulses are easily palpated. No calf tenderness to palpation. Gastrointestinal: The abdomen is soft, nontender and nondistended with active bowel sounds. Psychiatric: Lucid and oriented. Memory intact. Neurologic: No focal deficits. Speech is clear. No facial
[2021-02-19] MEDS: PANTOPRAZOLE 40 MG TABLET PO (18:37)
[2021-02-19] MEDS: ONDANSETRON INJ 4 MG/2 ML VIAL IV PUSH (18:50)
== END 2021-02-19 19:13 | disposition home or self-care (01) ==
LOC: ANHED 16:31 → ANHIMU 17:21 → ANHCPC 18:56
PROVIDERS: Internal Medicine Gastroenterology; Admitting Provider Family Medicine; Emergency Provider Emergency Medicine; PCP Emergency Medicine; Visit Provider Physician Assistant
PROC: 0DJ08ZZ Inspection of Upper Intestinal Tract, Via Natural or Artificial Opening Endoscopic (ICD-10-PCS; CPT 43235; principal; 2021-02-19 15:30)
DX: K29.70 Gastritis, unspecified, without bleeding (principal); R07.89 Other chest pain; R03.0 Elevated blood-pressure reading, without diagnosis of hypertension; N39.0 Urinary tract infection, site not specified; E78.00 Pure hypercholesterolemia, unspecified; R42 Dizziness and giddiness; R10.13 Epigastric pain; Z87.891 Personal history of nicotine dependence
CPT/HCPCS: 43239; 36415; 71045; 74176; 76705; 80053; 81001; 83690; 84484; 85025; 85380; 85610; 85730; 87077; 87081; 87086; 87088; 88305; 93005; 93306; 96361; 96365; 96375; 99285; A9270; G0378; J0696; J2270; J2405; J2704; J7030; J7120

== ENCOUNTER 2021-07-26 12:37 | Outpatient (CLI) | payer OTHER, SELFPAY ==
--- NOTE | ~2021-07-26 | CT_ITS ---
EXAMINATION: CT diagnostic chest wo con DATE: 07/26/2021 12:56 INDICATION: Lung nodule follow-up TECHNIQUE: Computed tomography (CT) of the chest was performed without intravenous contrast. The dose -length product was 158.90 mGy-cm. Automated exposure control and iterative reconstruction technique were employed. COMPARISON: CT dated 02/15/2020 and 04/15/2019 FINDINGS: Stable left lower lobe mass measuring 12 x 6 x 6 mm compared with 11 x 6 x 7 mm on prior ex amination. Stable 3-4 mm satellite nodule. No significant pleural or pericardial effusion. Calcified granuloma in the right lower lobe. No significant pleural or pericardial effusion. No thoracic lympha denopathy. Heart size is normal. The liver, spleen, pancreas, adrenal glands and visualized aspects o f the kidneys are unremarkable. Gallbladder is present. No endobronchial lesions. There is dependent atelectasis. No new pulmonary nodules or masses. IMPRESSION: 1. Stable 12 left lower lobe nodule and smaller 3-4 mm satellite nodule, unchanged for greater than 2 years, likely benign granulomatous disease. Twelve-month follow-up low dose CT chest recommended. Reviewed, dictated and finalized at location B. [employer]CH[employer]INE[employer] IMPRESSION: 1. Stable 12 left lower lobe nodule and smaller 3-4 mm satellite nodule, unchan ged for greater than 2 years, likely benign granulomatous disease. Twelve-month follow-up low dose CT chest recommended.
== END 2021-07-26 12:38 | disposition home or self-care (01) ==
LOC: ANHIMG 12:41
PROVIDERS: PCP Emergency Medicine; Visit Provider Emergency Medicine
DX: R91.1 Solitary pulmonary nodule (principal)
CPT/HCPCS: 71250

== ENCOUNTER 2021-09-30 10:32 | Emergency (ER) | payer OTHER, SELFPAY ==
[2021-09-30 10:41] VITALS: BP 147/76; PULSE 74; RESP 18; TEMP 36.5; O2SAT 99
--- NOTE | 2021-09-30 11:07 | ED.FEMALEGU ---
HPI - Female Genitourinary General Chief complaint: Urogenital-Female Stated complaint: Blood in Urine Time Seen by Provider: 09/30/21 10:45 Source: patient Mode of arrival: ambulatory Limitations: no limitations History of Present Illness HPI Narrative: Ms. Fang is a 61-year-old female patient presenting to the clinic today with complaints of urinary symptoms. She reports she is having some burning and blood in her urine that started yesterday. Also reporting some pain in her right side of the groin that is radiating into her back or pain in her back that is radiating to her groin as she cannot very well distinguish. States that she did have a discectomy approximately 2 weeks ago and was placed on some Cipro however she did not finish this due to the Cipro not making her feel right . States that she has noticed blood in the toilet as well as on the tissue paper. Has had a history of a hysterectomy in the past. Also has a history of kidney stones in the past and states that this does kind of feel as though it may be a kidney stone as the pain is sharp and varies in intensity. Does report that when she urinates that it is painful as well. She denies any fever or chills. She denies any nausea or vomiting associated with the pain. Related Data Home Medications Medication Instructions Recorded Confirmed simvastatin 10 mg tablet 10 mg PO HS 06/07/19 09/30/21 zolpidem 12.5 mg tablet,extended 12.5 mg PO HS 06/07/19 09/30/21 release,multiphase Allergies Allergy/AdvReac Type Severity Reaction Status Date / Time Iodinated Contrast Media AdvReac Mild Hives Verified 09/30/21 10:48 iodine AdvReac Mild Hives Verified 09/30/21 10:48 Contrast Media AdvReac Intermediate HIVES, Uncoded 09/30/21 10:48 ITCHING Review of Systems Review of Systems: Pertinent positives per HPI. Patient denies any fever, chills, rash, headache, visual changes, dizziness, cough, runny nose, sore throat, shortness of breath, chest pain, palpitations, nausea, vomiting, diarrhea, constipation, abdominal pain.. PMFSH Past Medical History Medical History (Updated 09/30/21 @ 11:10 by Ayan Chapa, HALINA) GERD (gastroesophageal reflux disease) Hepatic steatosis High cholesterol History of blood transfusion History of kidney stones Hypothyroid Mitral valve prolapse Non-cardiac chest pain Surgical History Surgical History History of arthroscopy of left knee (12/2015) History of colonoscopy with polypectomy History of hysterectomy (1987) History of repair of left rotator cuff (08/2012) History of right knee joint replacement (05/2016) Family History Family History Mother Family history of kidney disease Family history of mental disorder Hypertension Father Family history of coronary artery disease Lung cancer Sibling FH: coronary artery bypass surgery Grandparent Cervical cancer Family history of cardiovascular disease Chronic obstructive pulmonary disease Alzheimer's dementia Social History Social History Social History: Surrogate decision maker: Nazario Agarwal, spouse. Code status: Full code. Smoking packs per day: 0 Smoking cigarettes per day: 0.0 Years smoked: 10 Smoking pack-years: 0.00 Smoking status: Former smoker Tobacco type: cigarettes Second hand tobacco smoke exposure: No Smoking end date: 06/04/99 Alcohol intake: current Substance use: never Substance use type: does not use Additional living arrangements comments: Resides in [place] with her . Additional occupation/education comments: Works for [employer] Spiritual care concerns: No Comments At the time of my signature, I reviewed and agree with the nursing past medical, surgical, social, and family history. There is no rele
== END 2021-09-30 11:18 | disposition home or self-care (01) ==
PROVIDERS: Emergency Provider Nurse Practitioner Family; PCP Emergency Medicine
DX: N30.01 Acute cystitis with hematuria (principal); Z87.442 Personal history of urinary calculi; Z87.891 Personal history of nicotine dependence; K21.9 Gastro-esophageal reflux disease without esophagitis; E78.00 Pure hypercholesterolemia, unspecified; E03.9 Hypothyroidism, unspecified; I34.1 Nonrheumatic mitral (valve) prolapse; Z96.651 Presence of right artificial knee joint
CPT/HCPCS: 81003; 87086; 87088; 99213; G0463

== ENCOUNTER 2021-11-03 07:57 | Outpatient (CLI) | payer OTHER, SELFPAY ==
--- NOTE | ~2021-11-03 | MM_ITS ---
EXAMINATION: MM screening vikash BI w monty HISTORY: Screening mammogram TECHNIQUE: Craniocaudal and mediolateral oblique 3-D tomosynthesis images were obtained and synthetic 2-D images were generated. CAD analysis was submitted and interpreted. COMPARISON: 03/02/2020, 02/21/2019 bilateral screening mammogram examinations 03/14/2018 diagnostic right mammogram and limited right breast ultrasound 02/19/2018 bilateral screening mammogram BREAST PARENCHYMAL COMPOSITION: The breasts are almost entirely fatty. FINDINGS: There is no evidence of suspicious mass, calcification, or architectural distortion to sugg est malignancy in either breast. There has been no suspicious interval change. IMPRESSION: 1. No mammographic evidence of malignancy. 2. Recommend routine screening mammography in one year. BI-RADS Category 1: Negative Reviewed, dictated and finalized at location A.
== END 2021-11-03 07:58 | disposition home or self-care (01) ==
LOC: ANHIMG 07:59
PROVIDERS: PCP Emergency Medicine; Visit Provider Emergency Medicine
DX: Z12.31 Encounter for screening mammogram for malignant neoplasm of breast (principal)
CPT/HCPCS: 77063; 77067

== ENCOUNTER 2022-07-25 08:05 | Outpatient (CLI) | payer OTHER, SELFPAY ==
--- NOTE | ~2022-07-25 | CT_ITS ---
EXAMINATION: CT diagnostic chest wo con DATE: 07/25/2022 08:20 INDICATION: Lung nodule follow-up TECHNIQUE: Computed tomography (CT) of the chest was performed without intravenous contrast. The dose -length product was 193.34 mGy-cm. Automated exposure control and iterative reconstruction technique were employed. COMPARISON: Comparison to multiple prior studies sequentially, with oldest reviewed study dated 02/14. FINDINGS: Borderline size mediastinal lymph node, likely reactive. Calcified subcarinal lymph node, c onsistent with chronic granulomatous disease. There is calcified granuloma of the right lower lobe. N o significant pleural or pericardial effusion. Stable left lower lobe nodule measuring 7 mm greatest axial dimension this is unchanged dating back to 02/15/2020 For differences of technique. Small 2-3 mm left lower lobe nodule also unchanged allowing for differe nces of technique. No endobronchial lesions. No pneumothorax. No focal airspace consolidation. IMPRESSION: 1. Stable left lower lobe nodules dating back to 02/15/2020, likely benign. Consider follow-up low dos e CT chest in 12 months. Reviewed, dictated and finalized at location B. STRIAL AUTOMATION SPECIALIST IMPRESSION: 1. Stable left lower lobe nodules dating back to 02/15/2020, likely benign. Cons ider follow-up low dose CT chest in 12 months.
== END 2022-07-25 08:06 | disposition home or self-care (01) ==
PROVIDERS: PCP Emergency Medicine; Visit Provider Emergency Medicine
DX: R91.8 Other nonspecific abnormal finding of lung field (principal)
CPT/HCPCS: 71250

== ENCOUNTER 2022-08-22 12:56 | Outpatient (CLI) | payer OTHER, SELFPAY ==
--- NOTE | ~2022-08-22 | DEXA_ITS ---
Bone Density Report Name: MARY BETH SALINAS Age: 62 Sex: Female Ethnicity: White Date of : 1960 Indication: postmenopausal; screening for osteoporosis; hysterectomy; Referring Provider: FLORENCE LOUISE Study: Bone densitometry was performed. Exam Date: August 22, 2022 Accession number: [id number] Bone Density: Region BMD T-score Z-score Classification AP Spine(L1-L4) 0.943 -0.9 0.5 Normal Femoral Neck (Left) 0.823 -0.2 1.0 Normal Total Hip (Left) 0.937 0.0 0.9 Normal Femoral Neck (Right) 0.781 -0.6 0.7 Normal Total Hip (Right) 0.886 -0.5 0.5 Normal Total Hip Mean 0.912 -0.3 0.7 Normal World Health Organization criteria for BMD impression classify patients as: Normal (T-score at or above -1.0), Osteopenia (T-score between -1.0 and -2.5), or Osteoporosis (T-score at or below -2.5). 10-year Fracture Risk: FRAX not reported because: All T-scores for Spine Total, Hip Total, Femoral Neck at or above -1.0 Clinical Information Provided by Patient: Has the following medical conditions: Hysterectomy Patient maximum height was 62 Menopause Age: 30 No regular weight bearing exercise Drinks caffeinated beverages Onset of menses at age 14 Number of children 1 Impression: The patient has normal bone mass. Discussion: BONE DENSITY IS ABOVE THE MINIMUM DESIRABLE LEVEL AT ALL SKELETAL SITES TESTED. This patient?s bone mineral density is above the minimum desirable level (T-score -1.0 or better) at all sites measured. The patient should follow a healthful lifestyle (good nutrition with adequate calcium and vitamin D, and appropriate weight-bearing exercise). Follow-Up: Consider repeating this study in 5 years or sooner if there is some new clinical indication. Reported by: MANUEL on 08/22/2022 1:25:00 PM. Reviewed, dictated and finalized at location AKiley [facility]
== END 2022-08-22 12:57 | disposition home or self-care (01) ==
LOC: ANHIMG 12:57
PROVIDERS: PCP Emergency Medicine; Visit Provider Emergency Medicine
DX: Z78.0 Asymptomatic menopausal state (principal)
CPT/HCPCS: 77080

== ENCOUNTER 2022-10-13 07:59 | Outpatient (CLI) | payer OTHER, SELFPAY ==
--- NOTE | 2022-10-13 | ECG_ITS ---
Measurements Intervals [place] Rate: 52 P: -4 AK: 224 QRS: 15 QRSD: 94 T: 30 QT: 425 QTc: 399 Interpretive Statements SINUS BRADYCARDIA WITH FIRST DEGREE AV BLOCK INCOMPLETE RIGHT BUNDLE BRANCH BLOCK LOW QRS VOLTAGE IN PRECORDIAL LEADS BORDERLINE ECG COMPARED TO ECG 02/18/2021 11:26:09 SINUS BRADYCARDIA NOW PRESENT Electronically Signed On 10-13-2022 9:00:46 CDT by Wilson Mantilla D.O.
== END 2022-10-13 08:00 | disposition home or self-care (01) ==
LOC: ANHIMG 08:09
PROVIDERS: PCP Emergency Medicine; Visit Provider Emergency Medicine
DX: Z01.810 Encounter for preprocedural cardiovascular examination (principal); R00.1 Bradycardia, unspecified; I44.0 Atrioventricular block, first degree; I45.10 Unspecified right bundle-branch block
CPT/HCPCS: 93005

== ENCOUNTER 2023-08-03 09:27 | Outpatient (CLI) | payer OTHER, SELFPAY ==
--- NOTE | ~2023-08-03 | MM_ITS ---
EXAMINATION: MM screening vikash BI w monty HISTORY: Screening TECHNIQUE: Craniocaudal and mediolateral oblique 3-D tomosynthesis images were obtained and synthetic 2-D images were generated. CAD analysis was submitted and interpreted. COMPARISON: No prior mammogram is available for comparison at this institution. BREAST PARENCHYMAL COMPOSITION: There are scattered areas of fibroglandular density. FINDINGS: There is no evidence of suspicious mass, calcification, or architectural distortion to sugg est malignancy in either breast. There has been no suspicious interval change. IMPRESSION: 1. No mammographic evidence of malignancy. 2. Recommend routine screening mammography in one year. BI-RADS Category 1: Negative Reviewed, dictated and finalized at location A. HEADER
== END 2023-08-03 09:28 | disposition home or self-care (01) ==
PROVIDERS: PCP Emergency Medicine; Visit Provider Emergency Medicine
DX: Z12.31 Encounter for screening mammogram for malignant neoplasm of breast (principal)
CPT/HCPCS: 77063; 77067

== ENCOUNTER 2023-10-18 07:45 | Outpatient (CLI) | payer OTHER, SELFPAY ==
--- NOTE | ~2023-10-18 | CT_ITS ---
CT Scan of the Chest without Contrast: Clinical Indication: Pulmonary nodule Technique: Contiguous sections were acquired throughout the chest without intravenous contrast. Dose reduction technique was used on this scan by utilizing automated exposure control and iterative recon struction technique. The dose-length product (DLP) was 132.90 mGy-cm. COMPARISON: 07/25/2022 Findings: There is no evidence of any significant mediastinal, hilar or axillary lymphadenopathy. Calcified sub carinal nodes are present. The mediastinal soft tissues appear normal. There is no evidence of pleural or pericardial effusion. Stable 7 mm left basilar pulmonary nodule (axial image 76). Images through the upper abdomen reveal no abnormalities. Impression: Stable 7 mm left lower lobe pulmonary nodule. Reviewed, dictated and finalized at location . Impression: Stable 7 mm left lower lobe pulmonary nodule.
== END 2023-10-18 07:46 | disposition home or self-care (01) ==
PROVIDERS: PCP Emergency Medicine; Visit Provider Emergency Medicine
DX: R91.1 Solitary pulmonary nodule (principal)
CPT/HCPCS: 71250

== ENCOUNTER 2023-11-23 08:42 | Outpatient (CLI) | payer OTHER, SELFPAY | END 2023-11-23 08:43 | disposition home or self-care (01) | LOC: ANHAUDIO 08:43 | PROVIDERS: PCP Emergency Medicine; Visit Provider Emergency Medicine | DX: H93.13 Tinnitus, bilateral (principal) | CPT/HCPCS: 92557; 92567 ==

== ENCOUNTER 2025-03-11 08:28 | Outpatient (CLI) | payer OTHER, SELFPAY ==
--- NOTE | ~2025-03-11 | MM_ITS ---
EXAMINATION: MM screening vikash BI w monty HISTORY: Screening TECHNIQUE: Craniocaudal and mediolateral oblique 3-D tomosynthesis images were obtained and synthetic 2-D images were generated. CAD analysis was submitted and interpreted. COMPARISON: Comparison to multiple prior studies sequentially, with oldest reviewed study dated , 02/21/2019 BREAST PARENCHYMAL COMPOSITION: There are scattered areas of fibroglandular density. FINDINGS: There is no evidence of suspicious mass, calcification, or architectural distortion to suggest malignancy in either breast. IMPRESSION: 1. No mammographic evidence of malignancy. 2. Recommend routine screening mammography in one year. BI-RADS Category 1: Negative Reviewed, dictated and finalized at location B.
--- OUTSIDE RECORDS SUMMARY | 2025-03-11 08:40 | XMS_ITS | Clinical Summary ---
Author Organization [facility] Address [address] [address] Phone Care Team Providers Care Agricultural Loan Officer Name Role Phone Harvey Gomez Primary Care Provider [phone] Social History Tobacco Use Types Packs/Day Years Used Date Smoking Tobacco: Never Assessed Comments Unknown Sex and Gender Information Value Date Recorded Sex Assigned at Not on file Legal Sex Female 11:34 PM CDT Gender Identity Not on file Sexual Orientation Not on file Plan of Treatment Health Maintenance Due Date Last Done Comments Hepatitis C Virus (HCV) Screening 1960 TdaP Immunization 1960 Pap Smear 1983 Cervical Cancer Screening (CCS) 1992 HPV/Cotest 1992 Cologuard 2007 Colonoscopy 2007 Colorectal Cancer Screening 2007 Immunochemical Fecal Occult Blood 2007 Pneumococcal Immunization (5 0+ years) (1 of 1 - PCV) 2012 Zoster Immunization (1 of 2) 2012 Influenza Immunization (#1) 2025 SARS-COV-2 Immunization ( - season) 2025 Respiratory Syncytial Virus (RSV) Immunization (Adult) (1 - 1-dose 75+ series) 2037 Hepatitis B Immunization Aged Out No longer eligible based on patient's age to complete this topic Human Papillomavirus (HPV) Immunization Aged Out No longer eligible b ased on patient's age to complete this topic Meningococcal Immunization (ACWY) Aged Out No longer eligible based on patient's age to complete this topic Rotavirus Immunization Aged Out No lo nger eligible based on patient's age to complete this topic Insurance [facility] Care Teams Agricultural Loan Officer Relationship Specialty Start Date End Date Harvey Gomez [address] [id number] PCP - General Family Medicine 01/22/18
--- OUTSIDE RECORDS SUMMARY | 2025-03-11 08:40 | XMS_ITS | Clinical Summary ---
Author Organization [facility] Address [address] [place] [address] Care Team Providers Care Plate Drying Machine Tender Name Role Phone Harvey Gomez MD Primary Care Provider Allergies Active Allergy Reactions Criticality Noted Date Comments Iodine Hives,Itching Medium 02/27/2017 About 20 years ago. Iodine And Iodide Containing Products Medications acetaminophen (TYLENOL) 325 mg tablet Take according to [id number] r package directions 0 0 9 Active ibuprofen (ADVIL) 200 mg tablet Take according to bwlm-bmy-gfspoy r package directions 0 0 9 Active zolpidem CR (AMBIEN CR) 12.5 mg CR tabletIndicatio ns:Insomnia daily. 7 Active fluticasone (FLONASE) 50 mcg/actuation nasal spray Administer into affected nostril(s). Active ALLERGY RELIEF, LORATADINE, 10 mg tablet 7 Active simvastatin (ZOCOR) 10 mg tablet 7 Active eletriptan (RELPAX) 40 mg tabletIndicatio ns:Migraine Take 1 tablet (40 mg total) by mouth once as needed for migraine for up to 1 dose. May repeat one time after 2 hours if needed. 9 tablet 3 7 Active topiramate (TOPAMAX) 25 mg capsule Take one capsule po bid for one week, then 2 capsules by mouth twice a day 120 capsule 3 12/06/201 7 Active Active Problems Problem Noted Date Diagnosed Date Chronic migraine without aur a without status migrainosus, not intractable 05/05/2017 Surgical History Surgery Date Site/Laterality Comments HYSTERECTOMY REPLACEMENT TOTAL KNEE Right ROTATOR CUFF REPAIR Left Medical History Medical History Date Comments Headache, tension-type Migraine Family History Medical History Relation Name Comments Hypertension Brother Migraines Brother Lung cancer Father Alzheimer's disease Mother Hypertension Mother Migraines Mother Stroke Mother Relation Name Status Comments Brother Father Mother Social History Tobacco Use Types Packs/Day Years Used Date Smoking Tobacco: Former Smokeless Tobacco: Never Alcohol Use Standard Drinks/Week Comments No 0 (1 standard drink = 0.6 oz pur e alcohol) Personal Safety Answer Date Recorded Getting School Help Needed Not on file 08/17 Comments Unknown Sex and Gender Information Value Date Recorded Sex Assigned at Not on file Legal Sex Female 7:22 PM [employer] Gender Identity Female 12/25/2023 9:10 AM CDT Sexual Orientation Straight 12/25/2023 9: 10 AM CDT Obstetrics History Last Filed Vital Signs Vital Sign Reading Time Taken Comments Blood Pressure 135/82 05/05/2017 2:21 PM [employer] Pulse 73 05/05/2017 2:21 PM [employer] Temperature - - Respiratory Rate - - Oxygen Saturation - - Inhaled Oxygen Concentration - - Weight 95.1 kg (209 lb 9.6 oz) 05/05/2017 2:21 P M [employer] Height 160 cm (5' 3) 05/05/2017 2:21 PM [employer] Body Mass Index 37.13 05/05/2017 2:21 PM [employer] Plan of Treatment Health Maintenance Due Date Last Done Comments Breast Cancer Screening-Mammogram 1960 Colon Cancer Screening-Colonoscopy 1960 Depression Screening 1960 Hepatitis C Screening 1960 DTaP/Tdap/Td Vaccine (1 - Tdap) 1973 Hepatitis B Screening 1980 Regular Well Visit/Exam 18-64 1980 Zoster Vaccine (1 of 2) 2012 Covid-19 Vaccine ( season) 2025 04/13/2023, 06/01/2022, 06/21/2021, Additional history exists Influenza Vaccine (#1) 2025 04/13/2023, 2021 Pneumococcal vaccine <65 Aged Out 06/01/2022 No longer eligible based on patient's age to complete this topic Insurance [place] [address] [place] [address] [employer] Care Teams Plate Drying Machine Tender Relationship Specialty Start Date End Date Harvey Gomez MD PCP - General Family Medicine 03/15/17
--- OUTSIDE RECORDS SUMMARY | 2025-03-11 08:40 | XMS_ITS | Clinical Summary ---
Author Organization [facility] Address [address] [place] [address] Phone Care Team Providers Care Extruder Operator Name Role Phone Harvey Gomez MD Primary Care Provider [phone] Allergies No known active allergies Medications albuterol sulfate 90 mcg/Actuation inhaler Inhale 2 puffs by mouth every 4-6 hours as needed 18 Gram 01/10/2022 2:55 PM CDT 2 Active Irbesartan (AVAPRO) 75 mg tablet Take 1 Tablet (75 mg) by mouth daily. 90 Tablet 01/10/2022 2:55 PM CDT 2 Active chlorpheniramin e-HYDROcodone (TUSSIONEX) 8-10 mg/5 mL Suspension, Sust. Release 12HR TAKE 5 ML BY MOUTH EVERY 12 HOURS NEEDED FOR COUGH. AVOID DRIVING OR OPERATING MACHINES. 200 mL 05/02/2022 4:42 PM [employer] 2 Active oseltamivir (Tamiflu) 75 mg capsule Take 1 Capsule (75 mg) by mouth 2 times daily. 10 Capsule 05/02/2022 4:42 PM [employer] 2 Active azithromycin (Zithromax Z-Ari) 250 mg tablet TAKE 2 TABLETS BY MOUTH ON DAY 1, THEN TAKE 1 TABLET BY MOUTH ON DAYS 2-5 6 Tablet 05/02/2022 4:42 PM [employer] 2 Active famotidine (PEPCID) 20 mg tablet Take 2 tablets (40 mg) by mouth the day prior and the day of procedure. 4 Tablet 06/17/2022 4:47 PM [employer] 3 Active diphenhydrAMINE (BENADRYL) 25 mg capsule Take 2 capsules (50mg) 1 hour prior to procedure. 2 Capsule 3 Active predniSONE (DELTASONE) 50 mg tablet Take 1 tablet by mouth 13 hours, 7 hours, and 1 hour prior to procedure. 3 Tablet 06/17/2022 4:47 PM [employer] 3 Active HYDROcodone-nisreen taminophen (NORCO) 5-325 mg tablet Take 1-2 tablets by mouth every 6 hours as needed for pain. 56 Tablet 10/28/2022 11:27 AM CDT 3 Active escitalopram oxalate (Lexapro) 10 mg tablet Take 1 Tablet (10 mg) by mouth daily. 90 Tablet 07/10/2023 10:27 AM [employer] 4 Active albuterol sulfate HFA 90 mcg/actuation aerosol inhaler INHALE 2 PUFFS BY MOUTH EVERY 4-6 HOURS NEEDED 18 Gram 07/10/2023 10:27 AM [employer] 4 Active escitalopram oxalate (Lexapro) 10 mg tablet Take 1 Tablet (10 mg) by mouth daily. 90 Tablet 3 04/18/2024 11:58 AM [employer] 4 Active levothyroxine 25 mcg tablet Take 1 Tablet (25 mcg) by mouth daily. 90 Tablet 10/10/2023 10:03 AM CDT 4 Active nitrofurantoin (Macrobid) 100 mg capsule Take 1 Capsule (100 mg) by mouth 2 times daily (every 12 hours) with food. 14 Capsule 01/11/2024 8:37 AM CDT 4 Active escitalopram oxalate (Lexapro) 10 mg tablet Take 1 Tablet (10 mg) by mouth daily. 90 Tablet 3 02/04/2025 12:54 PM CDT 5 Active albuterol sulfate HFA 90 mcg/actuation aerosol inhaler Inhale 2 puffs by mouth every 4 - 6 hours as needed 8.5 Gram 08/30/2024 9:00 AM CDT 5 Active zolpidem (Ambien CR) 12.5 mg Controlled Release tablet Take 1 Tablet (12.5 mg) by mouth daily at bedtime. 90 Tablet 02/04/2025 12:54 PM CDT 5 Active levothyroxine 25 mcg tablet Take 1 Tablet (25 mcg) by mouth daily. 90 Tablet 3 02/08/2025 12:46 PM CDT 5 Active simvastatin (Zocor) 10 mg tablet Take 1 Tablet (10 mg) by mouth daily in the evening. 90 Tablet 3 02/08/2025 12:46 PM CDT 5 Active tirzepatide, weight loss, (Zepbound) 2.5 mg/0.5 mL Pen Injector Inject 2.5 mg under the skin once weekly 2 mL 5 Active Encounters Date Type Department Care Team Description 01/07/2025 External Device Data [facility] ABSTRACTION Provider, Abstract from Last 3 Months Social History Tobacco Use Types Packs/Day Years Used Date Smoking Tobacco: Never Assessed Comments Unknown Sex and Gender Information Value Date Recorded Sex Assigned at Not on file Legal Sex Female 10:25 AM CDT Gender Identity Not on file Sexual Orientation Not on file Plan of Treatment Health Maintenance Due Date Last Done Comments DTAP/TDAP/TD VACCINES (1 - Tdap) 1981 HPV/Cotest (21-29) 1983 CERVICAL CANCER SCREENING 1992 HPV/Cotest (30-65) 1992 PAP SMEAR 1992 BREAST CANCER SCREENING 2002 COLORECTAL SCREENING 2007 Colorectal Cancer Screening 2007 FIT-DNA Q 3 years 2007 FIT/FOBT Q 1 year 2007 Flex Sig/CT Colonography Q 5 years 2007 ZOSTER VACCINE (1 of 2) 2012 INFLUENZA VACCINE (#1) 2025 RSV VACCINE (60+ or ) (1 - 1-dose 75+ series) 2037 Insurance [employer]) [employer] [employer] * Guarantor: [id number] Account Type Relation to Patient Date of Phone Billing Address Workers Comp Employer Care Teams Extruder Operator Relationship Specialty Start Date End Date Harvey Gomez MD PCP - General Family Practice 12/04/13
== END 2025-03-11 08:29 | disposition home or self-care (01) ==
LOC: ANHFOHIMG 08:29
PROVIDERS: PCP Emergency Medicine; Visit Provider Emergency Medicine
DX: Z12.31 Encounter for screening mammogram for malignant neoplasm of breast (principal)
CPT/HCPCS: 77063; 77067